=== PATIENT | male | born 1995 | race Two or more races ===

== ENCOUNTER 2020-03-27 22:57 | Day surgery (SDC) | payer SELFPAY ==
--- NOTE | 2020-03-27 23:12 | PCM.SN.2 ---
- Free Text/Narrative Note: pt seen, chart reviewed; [id number]; txf from [facility] for acute appendicitis; pt would benefit from timely surgical intervention, rb dw pt, pt concurred and proceed; iv abx given in outside facility, continue iv fluid; consent and covid 19 status, proceed to surgery;
[2020-03-27] MEDS ORDERED: Propofol 200 MG/20 ML SDV ONE (23:25)
[2020-03-27] MEDS ORDERED: Midazolam 1 MG/ML 2 ML SDV ONE (23:25)
[2020-03-27] MEDS ORDERED: fentaNYL 250 MCG/5 ML SDV ONE (23:26)
[2020-03-27] MEDS ORDERED: Rocuronium Bromide 50 MG/5 ML Syringe ONE (23:26)
[2020-03-27] MEDS ORDERED: Lidocaine 2% 5 ML SDV ONE (23:26)
[2020-03-27] MEDS ORDERED: Succinylcholine/Sod PF 100 MG/5 ML SYRINGE IV ONE (23:26)
[2020-03-27] MEDS ORDERED: Sugammadex Sodium 200 MG/2 ML VIAL ONE (23:33)
[2020-03-27] MEDS ORDERED: Bupivacaine 0.25%/EPINEPHrine 1:200,000 10 ML SDV ONE (23:41)
--- NOTE | 2020-03-27 23:41 | PCM.PREANE ---
Preanesthetic Assessment - Anesthesia/Transfusion/Family Hx Anesthesia History: No Prior Anesthesia Family History of Anesthesia Reaction: No Transfusion History: No Prior Transfusion(s) - Review of Systems General: No Symptoms Pulmonary: No Symptoms Cardiovascular: No Symptoms Gastrointestinal: Abdominal Pain Neurological: No Symptoms Other: Reports: None - Physical Assessment NPO Status Date: 03/27/20 NPO Status Time: 12:00 (otilia) ASA Class: 2E Mental Status: Alert & Oriented x3 Airway Class: Mallampati = 2 Dentition: Reports: Normal Dentition Thyro-Mental Finger Breadths: 2 (leung) ROM/Head Extension: Full Lungs: Clear to Auscultation, Normal Respiratory Effort Cardiovascular: Regular Rate, Regular Rhythm - Acknowledgements Anesthesia Type Planned: General Anesthesia Pt an Appropriate Candidate for the Planned Anesthesia: Yes Alternatives and Risks of Anesthesia Discussed w Pt/Guardian: Yes Pt/Guardian Understands and Agrees with Anesthesia Plan: Yes PreAnesthesia Questionnaire - Past Health History Medical/Surgical History: Denies Medical/Surgical History Endocrine/Metabolic History: Reports: Obesity/BMI 30+ - SUBSTANCE USE Smoking Status *Q: Current Every Day Smoker - CURRENT (IN HOUSE) MEDS Current Meds: Current Medications Discontinued Medications Fentanyl (Sublimaze) Confirm Administered Dose 250 mcg .ROUTE .STK-MED ONE Stop: 03/27/20 23:27 Lidocaine (Xylocaine-Mpf 2%) Confirm Administered Dose 5 ml .ROUTE .STK-MED ONE Stop: 03/27/20 23:27 Midazolam HCl (Versed 1 Mg/Ml) Confirm Administered Dose 2 mg .ROUTE .STK-MED ONE Stop: 03/27/20 23:26 Propofol (Diprivan 20 Ml) Confirm Administered Dose 200 mg .ROUTE .STK-MED ONE Stop: 03/27/20 23:26 Rocuronium [place] (Rocuronium [place]) Confirm Administered Dose 50 mg .ROUTE .STK-MED ONE Stop: 03/27/20 23:27 Sugammadex Sodium (Bridion) Confirm Administered Dose 400 mg .ROUTE .STK-MED ONE Stop: 03/27/20 23:34
[2020-03-28] MEDS ORDERED: Sodium Chloride 0.9% 20 ML ONE (00:17)
[2020-03-28] MEDS ORDERED: Ondansetron 4 MG/2 ML SDV ONE (01:11)
[2020-03-28] MEDS ORDERED: Dexamethasone 4 MG/ML 5 ML MDV ONE (01:11)
[2020-03-28] MEDS ORDERED: fentaNYL 100 MCG/2 ML SDV IVPUSH PRN (01:14)
[2020-03-28] MEDS ORDERED: Albuterol 0.083% 2.5 MG/3 ML Neb Soln NEB PRN (01:14)
[2020-03-28] MEDS ORDERED: 50% Dextrose in Water 50 ML Syringe IVPUSH PRN (01:14)
[2020-03-28] MEDS ORDERED: Atropine 0.1 MG/ML 10 ML Syringe IVPUSH PRN ×2 (01:14)
[2020-03-28] MEDS ORDERED: Naloxone 0.4 MG/ML Syringe IVPUSH PRN (01:14)
[2020-03-28] MEDS ORDERED: EPINEPHrine 1:10,000 1 MG/10 ML Syringe IVPUSH PRN (01:14)
[2020-03-28] MEDS ORDERED: Morphine 4 MG/ML VIAL IVPUSH PRN (01:37)
[2020-03-28] MEDS ORDERED: Acetaminophen/oxyCODONE 325-5 MG Tab PO PRN (01:38)
[2020-03-28] MEDS ORDERED: Ondansetron 4 MG/2 ML SDV IVPUSH PRN (01:40)
[2020-03-28] MEDS ORDERED: Lactated Ringers 1,000 ML IV SCH (01:45)
--- NOTE | 2020-03-28 01:45 | HP ---
DATE OF : 1995 PRIMARY CARE PHYSICIAN: None PCP REASON FOR ADMISSION: This is a transfer admission from [place] for acute appendicitis. HISTORY OF PRESENT ILLNESS: The patient is a 25-year-old otherwise healthy gentleman, mainly Omani speaking but communicates very well with Croatian anyhow, complained of a 2-day history of acute onset of periumbilical pain, subsequently migrated to the right lower quadrant, the pain intensified, sought help in the emergency room. CAT scan shows a dilated appendix to 18 mm with an appendicolith, no free air or abscess. The patient was transferred to our hospital for further management. The patient denied prior episode and denied fever, chill, or diarrhea. PAST MEDICAL HISTORY: Significant for no diabetes, RI, CVA, or hypertension. PAST SURGICAL HISTORY: No abdominal surgery. ALLERGIES: Please refer to nursing notes for details. MEDICATIONS: Please refer to nursing notes for details. PHYSICAL EXAMINATION: GENERAL: A very pleasant gentleman in no acute distress, except complained about abdominal pain. HEENT: Normocephalic and atraumatic. Sclerae are anicteric. LUNGS: Clear to auscultation. HEART: Regular rate and rhythm. ABDOMEN: Exquisite tenderness at McBurney point and positive Rovsing sign. RADIOGRAPHIC DATA: CAT scan shows a dilated appendix and is dilated as alluded to above. IMPRESSION: Acute appendicitis, would benefit from timely surgical intervention. Risks and benefits were discussed with the patient. The patient agreed to proceed with an appendectomy, laparoscopic versus open. LATRICE / TONY /[id number]
--- NOTE | 2020-03-28 02:57 | PCM.POSTAN ---
POST ANESTHESIA ASSESSMENT - MENTAL STATUS Mental Status: Alert, Oriented - VITAL SIGNS Vital Signs: Last Vital Signs Temp 36.3 C 03/28/20 01:40 Pulse 76 03/28/20 02:45 Resp 15 03/28/20 02:45 BP 142/76 H 03/28/20 02:45 Pulse Ox 100 03/28/20 02:45 - RESPIRATORY Respiratory Status: Respiratory Rate WNL, Airway Patent, O2 Saturation Stable - CARDIOVASCULAR CV Status: Pulse Rate WNL, Blood Pressure Stable - GASTROINTESTINAL GI Status: No Symptoms - POST OP HYDRATION Hydration Status: Adequate & Stable
--- NOTE | 2020-03-28 08:11 | PCM48HPAN ---
Post Anesthesia Note - EVALUATION WITHIN 48HRS OF ANESTHETIC Vital Signs in Normal Range: Yes Patient Participated in Evaluation: Yes Respiratory Function Stable: Yes Airway Patent: Yes Cardiovascular Function Stable: Yes Hydration Status Stable: Yes Pain Control Satisfactory: Yes Nausea and Vomiting Control Satisfactory: Yes Mental Status Recovered: Yes Vital Signs: Last Vital Signs Temp 37.1 C 03/28/20 03:05 Pulse 77 03/28/20 07:05 Resp 16 03/28/20 07:05 BP 119/65 03/28/20 07:05 Pulse Ox 97 03/28/20 07:05
--- NOTE | 2020-03-28 11:03 | PCM.OPNOTE ---
- General Post-Op/Procedure Note Date of Surgery/Procedure: 03/27/20 Operative Procedure(s): lap appendectomy Findings: appendix was dilated, indurated, hyperemic, and a large appendicolith; exudate was more on proximal 1/3 of appendix; gross perf not observed; [id number] Pre Op Diagnosis: acute appendicitis Post-Op Diagnosis: Same Anesthesia Technique: General ET Tube Primary Surgeon: Jaden Webster Pathology: sent Complications: None Condition: Good Free Text/Narrative:: Intake & Output 03/27/20 03/28/20 03/28/20 22:59 06:59 14:59 Intake Total 1350 Output Total 1850 Balance -500
--- NOTE | 2020-03-29 10:14 | OR ---
SURGEON: Joshua Rodriguez DO DATE OF PROCEDURE: 03/27/2020 PREOPERATIVE DIAGNOSIS: Acute appendicitis. POSTOPERATIVE DIAGNOSIS: Acute appendicitis. PROCEDURE PERFORMED: Laparoscopic appendectomy. PRIMARY SURGEON: Jaden Webster MD COMPLICATIONS: None. FINDINGS: Appendix was dilated, indurated, hyperemic, and a large appendicolith. Exudates were more on proximal one-third of appendix. Gross perforation was not observed. DESCRIPTION OF PROCEDURE: The patient was taken to the operating room and placed in the supine position. Following induction of general endotracheal anesthesia, the patient's abdomen was prepped and draped in the sterile fashion. A time-out has been called. The patient was identified. The procedure was identified. The antibiotics were identified. The procedure then proceeded. The abdomen was prepped and draped in a standard fashion. After assessment of appropriate landmarks, a 12 millimeter trocar was inserted supraumbilically using Optiview and pneumoperitoneum was then achieved. This was followed with placement of 5 millimeter port in the right upper quadrant and another 5 millimeter port infraumbilically. The camera was inserted supraumbilical site and two laparoscopic Rogers retractors were then inserted through the other two sites. Following the cecum, the appendix was located. The appendix was then lifted up, and using a GI stapler the appendix was amputated at the base. And using the GI stapler, the mesoappendix was then amputated. The appendix was retrieved by an endoscopic bag and sent for pathologist. This was then followed by re-insertion of the camera to examine the staple line, and hemostasis. The trocars were then removed. The umbilical site was closed with 2-0 Vicryl deep stitch and 4 -0 Vicryl and Dermabond; the other 2 5 mm port sites were closed with 4-0 Vicryl and Dermabond. The patient was then awakened, extubated, and transferred to the recovery room in hemodynamically stable condition. Prior to closing, sponge count and instrument count was correct. Dr. Webster was present throughout the whole procedure. As always, thank you for the kind referral. Intraoperative findings as dictated above. At the conclusion of the surgery, skin staple was used to approximate the skin and a piece of Surgicel was inserted prior to closing of the abdomen for hemostasis. LATRICE / TONY /[id number]
== END 2020-03-28 12:05 | disposition home or self-care (01) ==
LOC: MW.SDS 22:57 → MW.MS 03-28 00:15 → MW.SDS 03-28 12:05
PROVIDERS: ATTEND Surgery
DX: K35.80 Unspecified acute appendicitis (principal); K36 Other appendicitis; K38.1 Appendicular concretions; E66.9 Obesity, unspecified; F17.200 Nicotine dependence, unspecified, uncomplicated; Z11.59 Encounter for screening for other viral diseases; Z68.31 Body mass index [BMI] 31.0-31.9, adult
CPT/HCPCS: 00840; 88304; A9270-GY; C1776; J0330; J1100; J2001; J2250; J2405; J2704; J3010; J3490; J7120; U0002